=== PATIENT | female | born 1975 | race Caucasian/White ===

== ENCOUNTER 2016-12-22 12:36 | Emergency (ER) | payer BC ==
[~2016-12-22] VITALS: Ht 175.3 cm; Wt 85.5 kg
[~2016-12-22 12:36] MED LIST: KEFLEX500 MG PO; NAPROXEN250 M1 PO; NO HOME MEDS; PERCOCET 5/31 TABLET PO; PRILOSEC20 MG PO; SELENIUM SULFI180 ML TP
[2016-12-22 13:17] LABS: HEMATOCRIT 37.9 % (36.0-46.0); MCH 32.9 PG (29.0-34.0); MCHC 33.8 G/DL (30.0-36.0); MCV 97.4 FL (83-99); MEAN PLAT.VOLUME 9.3 uM^3 (9.5-12.4); PLATELET COUNT 327 K/uL (156-360); RBC DIS.WIDTH-CV 12.8 % (11.8-14.6); RBC DIS.WIDTH-SD 44.2 % (39-53); RED BLOOD COUNT 3.89 M/uL (3.80-5.20); WHITE BLOOD COUNT 8.4 K/uL (4.1-10.2)
[2016-12-22 13:21] LABS: ADD MIUA? YES; BILIRUBIN NEGATIVE; BLOOD SMALL; COLOR YELLOW ((YELLOW)); GLUCOSE (STRIP) NEGATIVE; KETONES 5; LEUKOCYTES NEGATIVE; NITRITE NEGATIVE; PROTEIN (STRIP) 30; SPECIFIC GRAVITY 1.024 (1.000-1.030); UROBILINOGEN 0.2 MG/DL (0.2-1.0)
[2016-12-22 13:28] LABS: CHLORIDE 105 mEq/L (99-109); POTASSIUM 3.8 mEq/L (3.7-5.4); SODIUM 137 mEq/L (136-147)
[2016-12-22 13:31] LABS: GLUCOSE 105 mg/dL (70-99)
[2016-12-22 13:32] LABS: ANION GAP 10 MEQ/L (2-14); TOTAL BILIRUBIN 1.1 mg/dL (0.0-1.0)
[2016-12-22 13:34] LABS: ALKALINE PHOSPHATASE 81 IU/L (3-129); GFR ESTIMATE (CALCULATED) > 59 mL/min/
[2016-12-22 13:35] LABS: UREA NITROGEN (BUN) 13 mg/dL (9-23)
[2016-12-22 13:38] LABS: LIPASE 27 U/L (1.0-51.0)
[2016-12-22 13:45] LABS: QUANTITATIVE HCG < 4.0 MIU/ML
[2016-12-22 13:53] LABS: BACTERIA RARE /HPF; EPITHELIAL CELLS 1+ /HPF; MUCUS 3+ /LPF; RED BLOOD CELLS 0-5 /HPF (0-5); UCUL ADDED? NO; UNCLASSIFIED CASTS 0-5 /LPF; WHITE BLOOD CELLS 0-5 /HPF (0-5)
[2016-12-22] MEDS ORDERED: ANTIHYPERTENSIVE PO (18:11)
[2016-12-22] MEDS ORDERED: OMEPRAZOLE40 M1 PO (18:46)
[2016-12-22] MEDS ORDERED: ZOFRAN ODT4 MG PO (18:46)
[2016-12-22] MEDS ORDERED: ULTRAM50 MG PO (18:46)
[2016-12-22 19:06] VITALS: BP 148/90
== END 2016-12-22 19:07 | disposition home or self-care (01) ==
LOC: EME 12:36
DX: R10.84 Generalized abdominal pain (principal); R11.2 Nausea with vomiting, unspecified; I10 Essential (primary) hypertension; F17.200 Nicotine dependence, unspecified, uncomplicated
CPT/HCPCS: 74022; 76705; 80053; 81003; 83690; 84702; 85027; 93005; 99281; 99284; J3010

== ENCOUNTER 2017-08-25 08:22 | Emergency (ER) | payer OTHER, BC ==
[~2017-08-25] VITALS: Ht 172.7 cm; Wt 78.8 kg
[~2017-08-25 08:22] MED LIST changes: +ANTIHYPERTENSIVE PO; +OMEPRAZOLE40 M1 PO; +ULTRAM50 MG PO; +ZOFRAN ODT4 MG PO
[2017-08-25] MEDS ORDERED: LORTAB 5-325 M1 EACH PO (09:55)
[2017-08-25] MEDS ORDERED: FLEXERIL10 MG PO (09:55)
[2017-08-25] MEDS ORDERED: NAPROSYN500 MG PO (09:55)
[2017-08-25 10:03] VITALS: BP 145/101
== END 2017-08-25 10:04 | disposition home or self-care (01) ==
LOC: EME 08:22
DX: S16.1XXA Strain of muscle, fascia and tendon at neck level, initial encounter (principal); S29.012A Strain of muscle and tendon of back wall of thorax, initial encounter; V43.52XA Car driver injured in collision with other type car in traffic accident, initial encounter; Y92.410 Unspecified street and highway as the place of occurrence of the external cause; I10 Essential (primary) hypertension; K21.9 Gastro-esophageal reflux disease without esophagitis; F17.200 Nicotine dependence, unspecified, uncomplicated
CPT/HCPCS: 99281; 99284; J1885

== ENCOUNTER 2017-08-30 12:24 | Emergency (ER) | payer BC ==
[~2017-08-30] VITALS: Ht 175.3 cm; Wt 78.9 kg
[~2017-08-30 12:24] MED LIST changes: +FLEXERIL10 MG PO; +LORTAB 5-325 M1 EACH PO; +NAPROSYN500 MG PO
[2017-08-30 12:26] VITALS: BP 140/95
[2017-08-30] MEDS ORDERED: COZAAR50 MG PO (12:37)
[2017-08-30] MEDS ORDERED: CARTIA XT180 MG PO (12:38)
[2017-08-30] MEDS ORDERED: KEFLEX500 MG PO (13:12)
== END 2017-08-30 13:23 | disposition home or self-care (01) ==
LOC: EME 12:24
PROC: 0HQKXZZ Repair Right Lower Leg Skin, External Approach (ICD-10-PCS; principal; 2017-08-30)
DX: S81.811A Laceration without foreign body, right lower leg, initial encounter (principal); W45.8XXA Other foreign body or object entering through skin, initial encounter; F10.99 Alcohol use, unspecified with unspecified alcohol-induced disorder; I10 Essential (primary) hypertension; F17.200 Nicotine dependence, unspecified, uncomplicated
CPT/HCPCS: 99281; 99284

== ENCOUNTER 2017-11-13 08:06 | Emergency (ER) | payer OTHER, BC ==
[~2017-11-13] VITALS: Ht 175.3 cm; Wt 79.5 kg
[~2017-11-13 08:06] MED LIST changes: +CARTIA XT180 MG PO; +COZAAR50 MG PO
[2017-11-13] MEDS ORDERED: NAPROXEN500 MG PO (10:42)
[2017-11-13 11:07] VITALS: BP 122/80
== END 2017-11-13 11:08 | disposition home or self-care (01) ==
LOC: EME 08:06
DX: S16.1XXA Strain of muscle, fascia and tendon at neck level, initial encounter (principal); S40.012A Contusion of left shoulder, initial encounter; V49.49XA Driver injured in collision with other motor vehicles in traffic accident, initial encounter; Y92.410 Unspecified street and highway as the place of occurrence of the external cause; I10 Essential (primary) hypertension; K21.9 Gastro-esophageal reflux disease without esophagitis; F17.200 Nicotine dependence, unspecified, uncomplicated
CPT/HCPCS: 71046; 71120; 72040; 99281; 99283